=== PATIENT | male | born 1975 | race Caucasian/White ===

== ENCOUNTER 2017-03-17 19:42 | Emergency (ER) | payer SELFPAY ==
[2017-03-17 20:13] VITALS: BP 120/69
[2017-03-17] MEDS ORDERED: Cyclobenzaprine TAB* 10 MG PO ONE (20:52)
--- NOTE | 2017-03-17 21:08 | UC ---
Back Pain HPI - HPI Summary HPI Summary: 41 yo male injured lower back yesterday looking under a truck Today he stepped over a baby gate and his pain markedly increased severe spasms no bowel or bladder dysfunction no hx ca no sciatica remote hx of herniated disc - History of Current Complaint Chief Complaint: UCBackPain Stated Complaint: BACK PAIN/INJURY Time Seen by Provider: 03/17/17 20:35 Hx Obtained From: Patient Onset/Duration: Sudden Onset, Gradual Onset Timing: Constant Severity Initially: Mild Severity Currently: Severe Pain Intensity: 10 - declines analgesic here Pain Scale Used: 0-10 Numeric Character: Aching, Throbbing, Spasmodic, Stiffness Aggravating: Movement, Bending Alleviating: Nothing - Allergies/Home Medications Allergies/Adverse Reactions: Allergies Allergy/AdvReac Type Severity Reaction Status Date / Time No Known Allergies Allergy Verified 03/17/17 20:04 Home Medications: Home Medications Aspirin-Caffeine [[facility] 500-32.5 mg] 1,000 tab PO Q6H PRN 03/17/17 [ History Confirmed 03/17/17] Ibuprofen TAB* [Advil TAB*] 800 mg PO Q6H PRN 03/17/17 [History Confirmed ] PMH/Surg Hx/FS Hx/Imm Hx Previously Healthy: Yes Other History Of: Negative For: HIV, Hepatitis B, Hepatitis C - Surgical History Surgical History: None - Family History Known Family History: Negative: Seizure Disorder, Blood Disorder - Social History Alcohol Use: None Substance Use Type: None Smoking Status (MU): Never Smoked Tobacco - Immunization History Most Recent Influenza Vaccination: 2014 Review of Systems Constitutional: Negative Skin: Negative Eyes: Negative ENT: Negative Respiratory: Negative Cardiovascular: Negative Gastrointestinal: Negative Genitourinary: Negative Motor: Negative Neurovascular: Negative Musculoskeletal: Myalgia Neurological: Negative Psychological: Negative All Other Systems Reviewed And Are Negative: Yes Physical Exam Triage Information Reviewed: Yes Appearance: Well-Appearing, No Pain Distress, Well-Nourished Vital Signs: Initial Vital Signs Temp 97.7 F 03/17/17 20:06 Pulse 53 03/17/17 20:06 Resp 16 03/17/17 20:06 BP 120/69 03/17/17 20:06 Pulse Ox 99 03/17/17 20:06 Vital Signs Reviewed: Yes Eyes: Positive: Conjunctiva Clear ENT: Positive: Hearing grossly normal. Negative: Nasal congestion, Nasal drainage, Trismus, Muffled/hoarse voice Neck: Positive: Supple, Nontender, No Lymphadenopathy Respiratory: Positive: Lungs clear, Normal breath sounds, No respiratory distress, No accessory muscle use Cardiovascular: Positive: RRR Musculoskeletal: Positive: No Edema Neurological: Positive: Alert Psychological Exam: Normal Skin Exam: Normal Back Pain Course/Dx - Course Course Of Treatment: dtrs symetrical/sensation intact - Differential Dx/Diagnosis Provider Diagnoses: acute lumbar myofascial strain/spasm Discharge - Discharge Plan Condition: Stable Disposition: HOME Prescriptions: Cyclobenzaprine TAB* [Flexeril TAB*] 5 - 10 mg PO TID PRN #21 tab PRN Reason: Spasms Patient Education Materials: Low Back Strain (ED) Referrals: Non Staff,Doctor [Primary Care Provider] - Additional Instructions: PT consult return in 5-7 days if not better continue ibuprofen 800mg 3-4 x day with food for pain Images Front/Back of Body, Lg ([place]): 1 - tender/marked spasm
== END 2017-03-17 21:17 | disposition home or self-care (01) ==
LOC: UCCORT 19:42
DX: S39.012A Strain of muscle, fascia and tendon of lower back, initial encounter (principal); X58.XXXA Exposure to other specified factors, initial encounter; Y92.9 Unspecified place or not applicable; R25.2 Cramp and spasm
CPT/HCPCS: 99212; A9270-GY; G0463